=== PATIENT | male | born 1950 | race Caucasian/White ===

== ENCOUNTER 2024-09-30 12:38 | Emergency (ER) | payer MEDICARE ==
[2024-09-30] MEDS ORDERED: Sodium Chloride 0.9% 10 ML Syringe FLUSH PRN (12:58)
[2024-09-30] MEDS: Ketorolac 30 MG/ML SDV IVPUSH ONE (13:05)
[2024-09-30] MEDS: Metoclopramide 10 MG/2 ML SDV IVPUSH ONE (13:06)
[2024-09-30 13:08] LABS: BASOPHILS PERCENT AUTO 0.3 % (0.0-1.0); HEMATOCRIT 41.4 % (40.0-54.0); HEMOGLOBIN 13.7 g/dL (14.0-18.0); LYMPHOCYTES PERCENT AUTO 10.8 % (20.5-50.1); MEAN CORPUSCULAR HEMOGLOBIN 28.1 pg (27.0-34.0); MEAN CORPUSCULAR HGB CONC 33.1 g/dL (33.0-35.0); MONOCYTES PERCENT AUTO 7.9 % (2-8); PLATELET COUNT,PLT 286 10^3/uL (150-450); RED BLOOD CELL COUNT 4.87 10^6/uL (4.6-6.2)
[2024-09-30 13:31] LABS: ALANINE AMINOTRANSFERASE,ALT 23 U/L (16-63); ALKALINE PHOSPHATASE 129 U/L (46-116); ASPARTATE AMNIOTRANSFERASE,AST 15 U/L (15-37); BILIRUBIN TOTAL 0.6 mg/dL (0.2-1.0); BLOOD UREA NITROGEN,BUN 25 mg/dL (7-18); BUN/CREATININE RATIO 12.5 (No establ ref range); C-REACTIVE PROTEIN 2.43 ng/dL (<=0.50); CALCIUM 8.9 mg/dL (8.5-10.1); CARBON DIOXIDE,CO2 26 mmol/L (21-32); CHLORIDE,CL 107 mmol/L (98-107); GLUCOSE RANDOM 105 mg/dL (70-99); LACTATE DEHYDROGENASE,LDH 127 U/L (85-227); PROTEIN TOTAL,TP 7.4 g/dL (6.4-8.2); SODIUM,NA 141 mmol/L (136-145)
[2024-09-30 13:32] LABS: A/G RATIO 0.68; ESTIMATED GFR 35 mL/min (>=60)
[2024-09-30 13:34] LABS: LACTIC ACID 0.8 mmol/L (0.4-2.0)
[2024-09-30] MEDS: Sodium Chloride 0.9% 1,000 ML IV ONE (14:01)
== END 2024-09-30 14:27 | disposition home or self-care (01) ==
LOC: DL.ED 12:38
DX: K52.9 Noninfective gastroenteritis and colitis, unspecified (principal)
CPT/HCPCS: 36415; 74019; 80053; 83605; 83615; 85025; 86140; 96361; 96374; 96375; 99284; J1885; J2765; J7030